=== PATIENT | female | born 2000 | race Caucasian/White ===

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

== ENCOUNTER 2025-04-05 17:15 | Emergency (ER) | payer SELFPAY ==
--- NOTE | ~2025-04-05 | XR_ITS ---
EXAMINATION: XR ankle RT min 3V, 04/05/2025 17:35 CDT HISTORY: INVERSION INJURY, LAT MALLEOLUS SWELLING/PAIN COMPARISON: No comparisons available. Findings: Nondisplaced fracture of the lateral malleolus. No significant degenerative changes. Soft tissue swelling. Impression: Lateral malleolus fracture Reviewed, dictated and finalized at location . Impression: Lateral malleolus fracture
--- NOTE | 2025-04-05 17:18 | ED.LOWEXIN ---
HPI - Extremity Injury (Lower) General Chief Complaint: Extremity Injury, Lower Stated Complaint: Right Ankle Injury Time Seen by Provider: 04/05/25 17:17 Source: patient Mode of arrival: ambulatory Limitations: no limitations History of Present Illness HPI Narrative: Chitra is a 24-year-old female patient presenting to the clinic today with complaints of right lateral ankle pain. She reports she was running 30 minutes ago and tripped and inverted her ankle in the grass. Has pain and swelling to the lateral ankle. Has not taken any medications for symptoms. Is having difficulty bearing weight due to pain rates pain 5/10 currently. Related Data Home Medications ?Medication ?Instructions ?Recorded ?Confirmed ?Last Taken ?Type No Home Medications 04/05/25 04/05/25 Unknown History Allergies Allergy/AdvReac Type Severity Reaction Status Date / Time amoxicillin (From Augmentin) Allergy Hives Verified 04/05/25 17:30 clavulanic acid (From Allergy Hives Verified 04/05/25 17:30 Augmentin) Review of Systems Review of Systems: Pertinent positives per HPI. Patient denies any fever, chills, rash, headache, visual changes, dizziness, cough, runny nose, sore throat, shortness of breath, chest pain, palpitations, nausea, vomiting, diarrhea, constipation, abdominal pain, or any urinary issues. PMFSH Comments At the time of my signature, I reviewed and agree with the nursing past medical, surgical, social, and family history. There is no relevant family history pertinent to the patient complaint. Exam Narrative: General: Well-developed, well nourished, in no apparent distress Head: Normocephalic, atraumatic. Cardio: Regular rate and rhythm, s1 and s2 normal, no murmur appreciated. Resp: Clear to auscultation bilaterally, no rhonchi, rales, wheezing or rubs. Musculoskeletal: No deformity, localized swelling to the right lateral malleolus, tender to palpation over the right lateral malleolus, grossly normal range of motion, muscle strength strong and equal, peripheral pulse strong, no edema, no cyanosis, normal gait and station Course Course Emergency Course: Portions of this record may have been created with voice recognition software. Level of Care: Express Care Visit Vital Signs Vital signs: Vital Signs Temperature 36.6 C 04/05/25 17:22 Pulse Rate 81 04/05/25 17:22 Respiratory Rate 16 04/05/25 17:22 Blood Pressure 122/73 04/05/25 17:22 Pulse Oximetry 99 04/05/25 17:22 Oxygen Delivery Room Air 04/05/25 17:22 Temperature 36.6 C 04/05/25 17:22 Pulse Rate 81 04/05/25 17:22 Respiratory Rate 16 04/05/25 17:22 Blood Pressure 122/73 04/05/25 17:22 Pulse Oximetry 99 04/05/25 17:22 Oxygen Delivery Room Air 04/05/25 17:22 Vital signs reviewed MDM - Extremity Injury (Lower) MDM Narrative Medical decision making narrative: At the time of visit patient is resting comfortably on the exam table. Patient appears to be nontoxic. Complaints of right lateral ankle pain. She reports she was running 30 minutes ago and tripped and inverted her ankle in the grass. Has pain and swelling to the lateral ankle. Has not taken any medications for symptoms. Is having difficulty bearing weight due to pain rates pain 5/10 currently. Diagnostics: X-ray of the right ankle was performed and shows a distal lateral malleolus fracture Plan: I suspect patient has right distal lateral malleolus fracture. Posterior OCL and crutches was given. Ice pack was also given. Sensation, circulation within normal limits after application of the OCL splint. Will have patient follow-up with orthopedic provider- Dr. Martines. Supportive measures were discussed with the patient and they voiced understanding discharge instructions and agrees to treatment plan. Return precautions reviewed Differential Diagnosis Differential diagnosis: Likely ankle sprain and strain and ankle fracture Imaging Data Radiologist's impression: ITS Impressions Ankle X-Ray 04/05/25 17:47 Impression: Lateral malleolus fracture Discharge Plan Discharge Clinical Impression: Ankle fracture, lateral malleolus, closed Qualifiers: Encounter type: initial encounter Fracture alignment: nondisplaced Laterality: right Qualified Code(s): S82.64XA - Nondisplaced fracture of lateral malleolus of right fibula, initial encounter for closed fracture Patient Disposition: Home Condition: Stable Instructions: Antibiotic Form, Ankle Fracture (ED) Additional Instructions: X-ray shows a distal lateral malleolus fracture Rest, ice, elevate, and wear short leg posterior OCL splint Use crutches as discussed Tylenol/motrin for pain as discussed. Follow up with your PCP if symptoms persist more than 1 week[address] Follow up with Dr. Martines-orthopaedic provider- call his office on Monday to schedule an appointment Patient Language: Tuvaluan Prescriptions: No Action No Home Medications Follow-up/Referrals: Suleiman Martines MD [Physician, Orthopedics] - 2 Days Clinical Impression: Ankle fracture, lateral malleolus, closed UNKNOWN,DOCTOR [Primary Care Provider] Time of Disposition: 17:58 Quality NIHSS Nursing Documentation ED NIHSS nursing documentation: reviewed/agree
[2025-04-05 17:22] VITALS: BP 122/73; PULSE 81; RESP 16; TEMP 36.6; O2SAT 99
== END 2025-04-05 18:21 | disposition home or self-care (01) ==
PROVIDERS: Emergency Provider Nurse Practitioner Family
DX: S82.64XA Nondisplaced fracture of lateral malleolus of right fibula, initial encounter for closed fracture (principal); W18.40XA Slipping, tripping and stumbling without falling, unspecified, initial encounter; Y93.02 Activity, running
CPT/HCPCS: 29515; 73610; 99214; G0463